=== PATIENT | female | born 1980 | race Caucasian/White ===

== ENCOUNTER 2016-05-16 05:30 | Inpatient (IN) | payer BC ==
[~2016-05-16] VITALS: Ht 162.6 cm; Wt 88.9 kg
--- NOTE | ~2016-05-16 | OR ---
ADMIT: 05/16/2016 RM/LOC: 223 [facility] MR#: [id number] [address] [address] LUIS ALFREDO PERKINS [address] [place], [place] [address] Operative/Delivery Room Report SEX: F AGE: 35 : 1980 SURGERY DATE: 05/16/2016 SURGEON: Shilpi Leonardo MD NAME OF PROCEDURE: Repeat low transverse section. HOME SECURITY ALARM INSTALLER: Latrice Guzman MD Resident PREOPERATIVE DIAGNOSES: 1. Intrauterine at 39-4/7th weeks' gestation. 2. Previous section x2. 3. Advanced maternal age. POSTOPERATIVE DIAGNOSES: 1. Intrauterine at 39-4/7th weeks' gestation. 2. Previous section x2. 3. Advanced maternal age. FINDINGS: 1. Liveborn female infant, scores 8 at 1 minute, 9 at 5 minutes. Weight 7 pounds 12 ounces. 2. Normal appearing uterus, tubes, and ovaries bilaterally. ESTIMATED BLOOD LOSS: 500 mL. ANESTHESIA: Spinal. COMPLICATIONS: None. INDICATIONS FOR PROCEDURE: The patient is a 35-year-old female, 3, para 2-0-0-2, who presented to Labor and Delivery at 39-4/7th weeks' gestation for a scheduled repeat section at term. The patient's had been complicated by advanced maternal age. She was followed by Maternal- Medicine, and had normal screening throughout the . The risks, benefits, and alternatives of surgery had been discussed with the patient, and she wished to proceed. DESCRIPTION OF PROCEDURE: The patient was taken to the operating room, where spinal anesthesia was obtained without difficulty. The patient was placed in dorsal supine position in leftward tilt, and prepped and draped in usual sterile fashion. A Serrano catheter had been previously placed. A Pfannenstiel skin incision was made with a scalpel and carried through to the underlying layer of fascia. The fascia was nicked in the midline and this incision was extended bilaterally using Gibbons scissors. The superior aspect of the fascial incision was grasped with Gerald clamps, elevated, and the underlying rectus muscles were dissected off bluntly with Gibbons scissors. In a similar fashion, the inferior aspect of the fascial incision was grasped with Gerald clamps, elevated, and the underlying rectus muscles were dissected off with Gibbons scissors. The peritoneum was entered bluntly. There was noted to be some ADMIT: 05/16/2016 RM/LOC: 223 [facility] MR#: [id number] [address] [address] LUIS ALFREDO PERKINS [address] [place] [address] Operative/Delivery Room Report SEX: F AGE: 35 : 1980 scarring of the rectus muscles. The rectus muscles were then using Gibbons scissors and the peritoneal incision was unable to be extended bluntly. The bladder blade was then placed. The vesicouterine peritoneum was identified and entered sharply with Metzenbaum scissors. This incision was extended bilaterally and a bladder flap was created digitally. The bladder blade was then replaced. The lower uterine segment was incised with scalpel. Clear fluid was noted at the time of amniotomy. The uterine incision was extended bluntly. The 's vertex was grasped and there was some difficulty delivering the head, so the uterine incision was extended slightly using bandage scissors. The head was then able to be delivered, the remainder of the infant delivered without difficulty as well. The was dried. The cord was clamped and cut, and the was handed off to the warmer where nursing personnel were in attendance. The placenta then delivered intact. Twenty units of Pitocin were placed in IV bag to firm the uterus. The uterus was exteriorized and cleared of all clots and debris. The uterine incision was closed in a running locked fashion using 0 Vicryl. Several [id number] stitches were used for hemostasis of the uterine incision. When the uterine incision appeared hemostatic, the uterus was replaced into the abdominal cavity. The gutters were checked and cleared of all clots and debris. The uterine incision was again examined and was noted to be hemostatic. The fascial layer was closed in a running fashion using 0 Vicryl. The subcutaneous layer was made hemostatic with electrocautery. This layer was brought together using interrupted 2-0 plain gut, and the skin incision was closed with subcuticular stapler. The patient tolerated the procedure well. All sponge and needle counts were correct. The patient and her infant went to the room in stable condition. Shilpi Leonardo MD/ dutch JOB #: [id number] CC: Shilpi Leonardo, Attending Physician Shilpi Leonardo, Family Physician
[2016-05-18] MEDS ORDERED: COLACE-DPS100 MG PO (20:53)
[2016-05-18] MEDS ORDERED: PRENATAL VIT1 TAB PO (20:53)
[2016-05-18] MEDS ORDERED: MYLICON DPS80 MG PO (20:53)
[2016-05-18] MEDS ORDERED: NIPPLECREAM TP (20:54)
[2016-05-18] MEDS ORDERED: MOTRIN-DPS800 MG PO (20:54)
[2016-05-18] MEDS ORDERED: PERCOCET 5 DPS1 TAB PO (20:54)
--- NOTE | 2016-06-04 08:42 | HP ---
ADMIT: 05/16/2016 RM/LOC: [facility] MR#: [id number] [address] [place] [id number] LUIS ALFREDO PERKINS [address] [place] [address] Pre-OP History and Physical SEX: F AGE: 35 : 1980 Corrected: 05/16/2016 0503 njv DATE OF SERVICE: HISTORY OF PRESENT ILLNESS: The patient is a 35-year-old, 3, para 2-0- 0-2, who presents to Labor and Delivery at 39 and 4/7th weeks' gestation with estimated date of confinement 05/19/2016. The patient's has been complicated by advanced maternal age and history of previous section x2. LABORATORY DATA: Blood type A positive, antibody screen negative, RPR nonreactive, rubella immune, hep B surface antigen negative, HIV negative, gonorrhea and chlamydia negative. Normal diabetic screen, and group B strep negative. PAST MEDICAL HISTORY: Noncontributory. PAST SURGICAL HISTORY: section x2. ALLERGIES: NO KNOWN MEDICAL ALLERGIES. CURRENT MEDICATIONS: vitamins daily. FAMILY HISTORY: Mother with colon polyps. SOCIAL HISTORY: The patient is . She denies any alcohol, tobacco, or drug use. PHYSICAL EXAMINATION: VITAL SIGNS: On admission, vital signs are stable. The patient is afebrile. GENERAL: The patient is alert and oriented, in no acute distress. HEART: Regular rate and rhythm without murmurs, gallops, or rubs. LUNGS: Clear to auscultation bilaterally. ABDOMEN: Soft, nontender, gravid. EXTREMITIES: No edema. No calf tenderness. ADMIT: 05/16/2016 RM/LOC: [facility] MR#: [id number] [address] [place], [place] [address] LUIS ALFREDO PERKINS [address] [place] [address] Pre-OP History and Physical SEX: F AGE: 35 : 1980 ASSESSMENT AND PLAN: 1. A 35-year-old, 3, para 2-0-0-2 at 39 and 4/7th weeks' gestation. 2. History of previous section x2. Plan to proceed with repeat low transverse section. The risks, benefits, and alternatives of surgery including, but not limited to the risk of bleeding, possibly requiring a blood transfusion, risk of infection, the risk of injury to bowel or bladder have been discussed with the patient and she wishes to proceed. 3. Advanced maternal age. Shilpi Leonardo MD/ dutch JOB #: [id number] CC: Shilpi Leonardo, Attending Physician Javi Briones, Family Physician Corrected: 05/16/2016 0503 njv
--- NOTE | 2016-07-06 08:03 | DS ---
ADMIT: 05/16/2016 RM/LOC: 223 [facility] MR#: [id number] 26[address] [facility] [address] [place] [id number] LUIS ALFREDO PERKINS [address] [place], [place] [address] General Discharge Summary SEX: F AGE: 35 : 1980 ADMISSION DATE: 05/16/2016 DISCHARGE DATE: 05/18/2016 ADMISSION DIAGNOSES: 1. Intrauterine at 39-4/7 weeks' gestation. 2. Previous section x2. 3. Advanced maternal age. DISCHARGE DIAGNOSES: 1. Intrauterine at 39-4/7 weeks' gestation. 2. Previous section x2. 3. Advanced maternal age. PROCEDURES PERFORMED: Repeat low transverse section performed on 05/16/2016 with delivery of liveborn female , scores 8 at 1 minute, 9 at 5 minutes, weight 7 pounds 12 ounces. INDICATIONS FOR HOSPITALIZATION: The patient is a 35-year-old female, 3, para 2-0-0-2, who presented to Labor and Delivery at 39-4/7 weeks' gestation for scheduled repeat section. The patient's had been complicated by advanced maternal age, but otherwise been uncomplicated. HOSPITAL COURSE: The patient underwent the above-named procedure on 05/16/2016. Postoperatively, the patient did well. On postoperative day #1, the patient's pain was controlled. She was without difficulty and vital signs were stable. Postoperative hemoglobin is noted to be 10.5. By post op day #2, the patient is ambulating, voiding, and tolerating a regular diet and had positive flatus and was deemed stable for discharge. DISCHARGE INSTRUCTIONS: The patient is to be discharged to home. She is to continue Percocet and Motrin as needed for pain control. She is to follow up in the clinic in 2 weeks for an incision check and in 6 weeks for a postoperative check. FINAL DISPOSITION: The patient is to home. CONDITION ON DISCHARGE: Stable. Shilpi Leonardo MD/ dutch JOB #: [id number] CC: Shilpi Leonardo MD, Attending Physician Shilpi Leonardo MD, Family Physician
== END 2016-05-18 13:30 | disposition home or self-care (01) | DRG 766 ==
LOC: BC 05:30 → 2LDRP 05:30 → BC 05-18 08:00 → 2LDRP 05-18 13:30
PROVIDERS: ADMIT Obstetrics & Gynecology
PROC: 10D00Z1 Extraction of Products of Conception, Low, Open Approach (ICD-10-PCS; principal; 2016-05-16)
DX: O34.211 Maternal care for low transverse scar from previous cesarean delivery (principal); Z37.0 Single live birth; Z3A.39 39 weeks gestation of pregnancy